=== PATIENT | female | born 1965 | race American Indian/Alaskan Native ===

== ENCOUNTER 2016-07-26 02:24 | Emergency (ER) | payer SELFPAY ==
[~2016-07-26] VITALS: Ht 162.6 cm; Wt 49.8 kg
[~2016-07-26 02:24] MED LIST: BETH25TA2 PO; LISI-515 PO; PROM12.54 PO
[2016-07-26 02:35] VITALS: BP 238/129; PULSE 102; RESP 18; TEMP 98.9; O2SAT 94
[2016-07-26] MEDS ORDERED: SODIUM CHLOR 0.9% 1000 ML INJ 1,000 ML IV SCH (02:36)
--- NOTE | 2016-07-26 02:43 | PD ---
HPI . Abdominal pain Chief Complaint: GI Complaint Time Seen by Provider: 02:36 Travel History International Travel<30 days: No Contact w/Intl Traveler<30days: No Traveled to known affect area: No History of Present Illness HPI Patient presents with abdominal pain and vomiting which started at 8 AM. She reports 10 episodes of emesis. The emesis is food substance. No diarrhea. She has no fever. She reports a history of gastroparesis. She states that she has been unable to keep her oral medication down. [id number]: Epigastric DURATION: Less than 1 day TIMING: Continuous CONTEXT: History of gastroparesis PFSH Past Medical History Blood Disorders: No Cancer: No Cardiovascular Problems: Yes (heart murmur -0- unknown) Diminished Hearing: No Endocrine: No Gastrointestinal Disorders: Yes (gastroparesis) Genitourinary: No Hypertension: Yes Immune Disorder: No Musculoskeletal: No Neurologic: No Psychiatric: No Reproductive: No Respiratory: No Immunizations Current: No Ulcer: Yes Tetanus Vaccination: Unknown Influenza Vaccination: No PNEUMOCCOCAL Vaccine (Year): 2 ?: Not Menopausal: No : 1 Para: 1 Past Surgical History Abdominal Surgery: Yes (HEMMORRHOIDS) Other Surgery: Yes (hemmorhoidectomy) Social History Alcohol Use: No Tobacco Use: Yes (1 PACK/DAY x 20 years) Substance Use: No Allergies-Medications (Allergen,Severity, Reaction): Coded Allergies: No Known Allergies (Verified , 07/26/16) Reported Meds & Prescriptions Reported Meds & Active Scripts Active Zofran Odt (Ondansetron Odt) 4 Mg Tab 4 Mg SL Q6HR PRN Lisinopril 20 Mg Tab 20 Mg PO BID Reported Promethazine (Promethazine HCl) 12.5 Mg Tab 12.5 Mg PO Q6H PRN Bethanechol 25 Mg Tab 25 Mg PO BID Review of Systems Except as stated in HPI: all other systems reviewed are Neg General / Constitutional: No: Fever, Chills Gastrointestinal: Positive: Nausea, Vomiting, Abdominal Pain, No: Diarrhea Physical Exam Narrative GENERAL: This is a thin woman who walks in a hunched over and who is writhing on the bed. SKIN: Warm and dry. HEAD: Atraumatic. Normocephalic. EYES: Pupils equal and round. ENT: No nasal bleeding or discharge. Mucous membranes pink and moist. NECK: Trachea midline. Neck is supple CARDIOVASCULAR: Regular rate and rhythm. She is having frequent PVCs. RESPIRATORY: No accessory muscle use. Lungs are clear. GASTROINTESTINAL: Abdomen soft. Epigastric tenderness. Nondistended. MUSCULOSKELETAL: No obvious deformities. No edema. NEUROLOGICAL: Awake and alert. No obvious cranial nerve deficits. Motor grossly within normal limits. Normal speech. PSYCHIATRIC: Appropriate mood and affect; insight and judgment normal. Data Data Last Documented VS Vital Signs Date Time Temp Pulse Resp B/P Pulse Ox O2 Delivery O2 Flow Rate FiO2 07/26/16 02:35 98.9 102 18 238/129 94 Orders Complete Blood Count With Diff (07/26/16 02:36) Comprehensive Metabolic Panel (07/26/16 02:36) Lipase (07/26/16 02:36) Iv Access Insert/Monitor (07/26/16 02:36) Morphine Inj (Morphine Inj) (07/26/16 02:45) Ondansetron Inj (Zofran Inj) (07/26/16 02:45) Sodium Chlor 0.9% 1000 Ml Inj (Ns 1000 M (07/26/16 02:36) Sodium Chloride 0.9% Flush (Ns Flush) (07/26/16 02:45) Lorazepam Inj (Ativan Inj) (07/26/16 03:15) Hydromorphone Pf Inj (Dilaudid Pf Inj) (07/26/16 03:15) Labs Laboratory Tests Test 07/26/16 07/26/16 02:46 03:20 White Blood Count 9.9 TH/MM3 Red Blood Count 4.84 MIL/MM3 Hemoglobin 14.7 GM/DL Hematocrit 45.0 % Mean Corpuscular Volume 93.0 FL Mean Corpuscular Hemoglobin 30.5 PG Mean Corpuscular Hemoglobin 32.8 % Concent Red Cell Distribution Width 13.3 % Platelet Count 405 TH/MM3 Mean Platelet Volume 8.4 FL Neutrophils (%) (Auto) 76.2 % Lymphocytes (%) (Auto) 18.5 % Monocytes (%) (Auto) 4.0 % Eosinophils (%) (Auto) 0.1 % Basophils (%) (Auto) 1.2 % Neutrophils # (Auto) 7.6 TH/MM3 Lymphocytes # (Auto) 1.8 TH/MM3 Monocytes # (Auto) 0.4 TH/MM3 Eosinophils # (Auto) 0.0 TH/MM3 Basophils # (Auto) 0.1 TH/MM3 CBC Comment DIFF FINAL Differential Comment Sodium Level 143 MEQ/L Potassium Level 3.4 MEQ/L Chloride Level 106 MEQ/L Carbon Dioxide Level 25.4 MEQ/L Anion Gap 12 MEQ/L Blood Urea Nitrogen 12 MG/DL Creatinine 0.93 MG/DL Estimat Glomerular Filtration 64 ML/MIN Rate Random Glucose 146 MG/DL Calcium Level 9.2 MG/DL Total Bilirubin 0.4 MG/DL Aspartate Amino Transf 13 U/L (AST/SGOT) Alanine Aminotransferase 23 U/L (ALT/SGPT) Alkaline Phosphatase 106 U/L Total Protein 7.1 GM/DL Albumin 3.9 GM/DL Lipase 111 U/L [facility] Medical Decision Making Medical Screen Exam Complete: Yes Emergency Medical Condition: Yes Medical Record Reviewed: Yes (the patient was last seen here in 2011 with similar symptoms. She was treated with IV fluids, morphine and Zofran.) Differential Diagnosis Differential diagnosis of abdominal pain includes but is not limited to gastritis, pancreatitis, hepatitis, gastroenteritis, gallbladder disease, constipation, urinary retention, UTI, peptic ulcer disease, diverticulitis or appendicitis Narrative Course Patient presents with epigastric pain associated with vomiting. She reports a history of gastroparesis. CBC & BMP Diagram 07/26/16 02:46 07/26/16 03:20 The patient continued to complain of pain and nausea following Zofran and morphine. She was subsequently given Ativan. The Ativan seems to have worked better than the Zofran and morphine. She has had no further emesis. Diagnosis Primary Impression: Epigastric pain Additional Impressions: Vomiting Qualified Code: R11.2 - Non-intractable vomiting with nausea, unspecified vomiting type Gastroparesis Patient Instructions: Narcotic given in the ED Med/Other Pt SpecificInfo: Prescription(s) given Scripts Ondansetron Odt (Zofran Odt)4 Mg Tab4 Mg SL Q6HR PRN (Nausea/Vomiting) #30 TAB Ref 0 Prov:Theresa Ackerman MD 07/26/16 Disposition: 01 DISCHARGE HOME Condition: Stable Theresa Ackerman MD Jul 26, 2016 02:43
[2016-07-26] MEDS ORDERED: MORPHINE SULFATE 4 MG/ML INJ IV PUSH ONE (02:45)
[2016-07-26] MEDS ORDERED: SODIUM CHLORIDE 0.9% FLUSH 5 ML FLUSH IVF PRN (02:45)
[2016-07-26] MEDS ORDERED: ONDANSETRON HCL 4 MG/2 ML VIAL IVP ONE (02:45)
[2016-07-26 03:07] LABS: AUTOMATED NEUTROPHIL # 7.6 TH/MM3 (1.8-7.7); BASOPHIL # 0.1 TH/MM3 (0-0.2); BASOPHIL % 1.2 % (0.0-2.0); EOSINOPHIL % 0.1 % (0.0-4.0); LYMPH % 18.5 % (9.0-44.0); LYMPHOCYTE # 1.8 TH/MM3 (1.0-4.8); MEAN CORPUSCULAR HEMOGLOBIN 30.5 PG (27.0-34.0); MEAN CORPUSCULAR HGB CONC 32.8 % (32.0-36.0); NEUT % 76.2 % (16.0-70.0); PLATELET COUNT 405 TH/MM3 (150-450); RED BLOOD COUNT 4.84 MIL/MM3 (4.00-5.30); RED CELL DISTRIBUTION WIDTH 13.3 % (11.6-17.2); WHITE BLOOD COUNT 9.9 TH/MM3 (4.0-11.0)
[2016-07-26 03:10] LABS: HEMO FLAGS DIFF FINAL
[2016-07-26] MEDS ORDERED: HYDROmorphone HCL PF 1 MG/ML VIAL IV PUSH ONE (03:15)
[2016-07-26] MEDS ORDERED: LORazepam 2 MG/ML VIAL IV PUSH ONE (03:15)
[2016-07-26 03:44] LABS: CHLORIDE 106 MEQ/L (98-107); POTASSIUM 3.4 MEQ/L (3.5-5.1); SODIUM (NA) 143 MEQ/L (136-145)
[2016-07-26 03:47] LABS: ANION GAP 12 MEQ/L (5-15); BICARBONATE 25.4 MEQ/L (21.0-32.0); BLOOD UREA NITROGEN 12 MG/DL (7-18)
[2016-07-26 03:50] LABS: ALT (GPT) 23 U/L (10-53); AST (GOT) 13 U/L (15-37); GLOMERULAR FILTRATION RATE 64 ML/MIN (>89)
[2016-07-26 03:52] LABS: TOTAL BILIRUBIN ADULT 0.4 MG/DL (0.2-1.0)
[2016-07-26 03:53] LABS: ALKALINE PHOSPHATASE 106 U/L (45-117)
[2016-07-26] MEDS ORDERED: ZOFR4TAB3 SL (03:57)
[2016-07-26 04:05] VITALS: BP 160/90
== END 2016-07-26 04:25 | disposition home or self-care (01) ==
LOC: PHED 02:24
DX: R10.13 Epigastric pain (principal); K31.84 Gastroparesis; R11.10 Vomiting, unspecified; I10 Essential (primary) hypertension; F17.210 Nicotine dependence, cigarettes, uncomplicated
CPT/HCPCS: 80053; 83690; 85025; 96361; 96374; 96375; 99284; J1170; J2060; J2270; J2405; J7030

== ENCOUNTER 2016-09-05 16:30 | Emergency (ER) | payer SELFPAY ==
[~2016-09-05] VITALS: Ht 162.6 cm; Wt 50.3 kg
[~2016-09-05 16:30] MED LIST changes: +ZOFR4TAB3 SL
[2016-09-05] MEDS ORDERED: SODIUM CHLOR 0.9% 1000 ML INJ 1,000 ML IV ONE (17:00)
[2016-09-05] MEDS ORDERED: HYDROmorphone HCL PF 1 MG/ML VIAL IV PUSH ONE ×2 (17:00→18:15)
[2016-09-05] MEDS ORDERED: ONDANSETRON HCL 4 MG/2 ML VIAL IV PUSH ONE (17:00)
[2016-09-05 17:02] VITALS: BP 238/116; PULSE 98; RESP 18; TEMP 98.2; O2SAT 94
--- NOTE | 2016-09-05 17:10 | PD ---
HPI Chief Complaint: GI Complaint Time Seen by Provider: 16:52 Travel History International Travel<30 days: No Contact w/Intl Traveler<30days: No Traveled to known affect area: No History of Present Illness HPI This 51-year-old female is complaining of epigastric pain and vomiting. She has been diagnosed with gastroparesis for several years. She has been sick for about 2 days. She has not been taking any medications. She has a history of hypertension and is on lisinopril PFSH Past Medical History Blood Disorders: No Cancer: No Cardiovascular Problems: Yes (heart murmur -0- unknown) Diminished Hearing: No Endocrine: No Gastrointestinal Disorders: Yes (gastroparesis) Genitourinary: No Hypertension: Yes Immune Disorder: No Implanted Vascular Access Dvce: No Musculoskeletal: No Neurologic: No Psychiatric: No Reproductive: No Respiratory: No Immunizations Current: No Ulcer: Yes PNEUMOCCOCAL Vaccine (Year): 2 ?: Not Menopausal: No : 1 Para: 1 Past Surgical History Abdominal Surgery: Yes (HEMMORRHOIDS) Other Surgery: Yes (hemmorhoidectomy) Social History Alcohol Use: No Tobacco Use: Yes (1 PACK/DAY x 20 years) Substance Use: No Allergies-Medications (Allergen,Severity, Reaction): Coded Allergies: No Known Allergies (Verified , 07/26/16) Reported Meds & Prescriptions Reported Meds & Active Scripts Active Lisinopril 20 Mg Tab 20 Mg PO BID Reported Bethanechol 25 Mg Tab 25 Mg PO BID Review of Systems General / Constitutional: No: Fever, Chills Eyes: No: Diploplia, Blurred Vision HENT: No: Headaches Cardiovascular: Positive: Palpitations, No: Chest Pain or Discomfort Respiratory: No: Cough Gastrointestinal: Positive: Nausea, Vomiting, Abdominal Pain Genitourinary: No: Frequency Musculoskeletal: No: Myalgias, Arthralgias Skin: No Rash Neurologic: No: Weakness Hematologic/Lymphatic: No: Easy Bruising Physical Exam Narrative GENERAL: Female vomiting on arrival SKIN: Focused skin assessment warm/dry. HEAD: Atraumatic. Normocephalic. EYES: Pupils equal and round. No scleral icterus. No injection or drainage. ENT: No nasal bleeding or discharge. Mucous membranes pink and moist. NECK: Trachea midline. No JVD. CARDIOVASCULAR: Regular rate and rhythm. No murmur appreciated. RESPIRATORY: No accessory muscle use. Clear to auscultation. Breath sounds equal bilaterally. GASTROINTESTINAL: Abdomen soft, there is epigastric tenderness nondistended. Hepatic and splenic margins not palpable. MUSCULOSKELETAL: No obvious deformities. No clubbing. No cyanosis. No edema. NEUROLOGICAL: Awake and alert. No obvious cranial nerve deficits. Motor grossly within normal limits. Normal speech. PSYCHIATRIC: Appropriate mood and affect; insight and judgment normal. Data Data Last Documented VS Vital Signs Date Time Temp Pulse Resp B/P Pulse Ox O2 Delivery O2 Flow Rate FiO2 09/05/16 17:45 16 09/05/16 17:30 88 196/103 97 Room Air 09/05/16 17:02 98.2 Orders Complete Blood Count With Diff (09/05/16 16:56) Comprehensive Metabolic Panel (09/05/16 16:56) Lipase (09/05/16 16:56) Sodium Chlor 0.9% 1000 Ml Inj (Ns 1000 M (09/05/16 17:00) Ondansetron Inj (Zofran Inj) (09/05/16 17:00) Hydromorphone Pf Inj (Dilaudid Pf Inj) (09/05/16 17:00) Enalaprilat Inj (Vasotec Inj) (09/05/16 17:45) Hydromorphone Pf Inj (Dilaudid Pf Inj) (09/05/16 18:15) Labs Laboratory Tests Test 09/05/16 17:05 White Blood Count 11.8 TH/MM3 Red Blood Count 5.02 MIL/MM3 Hemoglobin 15.6 GM/DL Hematocrit 47.0 % Mean Corpuscular Volume 93.6 FL Mean Corpuscular Hemoglobin 31.0 PG Mean Corpuscular Hemoglobin 33.2 % Concent Red Cell Distribution Width 13.6 % Platelet Count 392 TH/MM3 Mean Platelet Volume 8.0 FL Neutrophils (%) (Auto) 75.7 % Lymphocytes (%) (Auto) 16.0 % Monocytes (%) (Auto) 5.1 % Eosinophils (%) (Auto) 0.4 % Basophils (%) (Auto) 2.8 % Neutrophils # (Auto) 9.0 TH/MM3 Lymphocytes # (Auto) 1.9 TH/MM3 Monocytes # (Auto) 0.6 TH/MM3 Eosinophils # (Auto) 0.0 TH/MM3 Basophils # (Auto) 0.3 TH/MM3 CBC Comment DIFF FINAL Differential Comment Sodium Level 141 MEQ/L Potassium Level 3.6 MEQ/L Chloride Level 106 MEQ/L Carbon Dioxide Level 25.9 MEQ/L Anion Gap 9 MEQ/L Blood Urea Nitrogen 11 MG/DL Creatinine 0.87 MG/DL Estimat Glomerular Filtration 69 ML/MIN Rate Random Glucose 127 MG/DL Calcium Level 9.3 MG/DL Total Bilirubin 0.4 MG/DL Aspartate Amino Transf 18 U/L (AST/SGOT) Alanine Aminotransferase 21 U/L (ALT/SGPT) Alkaline Phosphatase 114 U/L Total Protein 7.4 GM/DL Albumin 4.1 GM/DL Lipase 111 U/L [facility] Medical Decision Making Medical Screen Exam Complete: Yes Emergency Medical Condition: Yes Medical Record Reviewed: Yes Differential Diagnosis Differential includes gastroenteritis, gastroparesis, Narrative Course Patient has multiple attacks like this in the past diagnosed with gastroparesis. Diagnosis Primary Impression: Gastroparesis Scripts Dicyclomine (Bentyl)20 Mg Tab20 Mg PO TID #20 TAB Ref 0 Prov:Christopher Ferrell MD 09/05/16 Ondansetron Odt (Zofran Odt)4 Mg Tab4 Mg SL Q6HR PRN (Nausea/Vomiting) #30 TAB Ref 0 Prov:Christopher Ferrell MD 09/05/16 Disposition: 01 DISCHARGE HOME Condition: Stable Christopher Ferrell MD Sep 05, 2016 17:10
[2016-09-05 17:15] LABS: BASOPHIL # 0.3 TH/MM3 (0-0.2); BASOPHIL % 2.8 % (0.0-2.0); EOSINOPHIL % 0.4 % (0.0-4.0); LYMPHOCYTE # 1.9 TH/MM3 (1.0-4.8); MEAN CELL VOLUME 93.6 FL (80.0-100.0); MEAN CORPUSCULAR HGB CONC 33.2 % (32.0-36.0); MONO % 5.1 % (0.0-8.0); NEUT % 75.7 % (16.0-70.0); PLATELET COUNT 392 TH/MM3 (150-450); RED BLOOD COUNT 5.02 MIL/MM3 (4.00-5.30); RED CELL DISTRIBUTION WIDTH 13.6 % (11.6-17.2); WHITE BLOOD COUNT 11.8 TH/MM3 (4.0-11.0)
[2016-09-05 17:23] LABS: HEMO FLAGS DIFF FINAL
[2016-09-05 17:30] VITALS: BP 196/103; PULSE 88; RESP 16; O2SAT 97
[2016-09-05] MEDS ORDERED: ENALAPRILAT 1.25 MG/ML VIAL IV PUSH ONE (17:45)
[2016-09-05 17:54] LABS: CHLORIDE 106 MEQ/L (98-107); POTASSIUM 3.6 MEQ/L (3.5-5.1); SODIUM (NA) 141 MEQ/L (136-145)
[2016-09-05 17:58] LABS: ANION GAP 9 MEQ/L (5-15); BICARBONATE 25.9 MEQ/L (21.0-32.0); BLOOD UREA NITROGEN 11 MG/DL (7-18)
[2016-09-05 18:01] LABS: ALT (GPT) 21 U/L (10-53); AST (GOT) 18 U/L (15-37); GLOMERULAR FILTRATION RATE 69 ML/MIN (>89)
[2016-09-05 18:02] LABS: TOTAL BILIRUBIN ADULT 0.4 MG/DL (0.2-1.0)
[2016-09-05 18:04] LABS: ALKALINE PHOSPHATASE 114 U/L (45-117)
[2016-09-05] MEDS ORDERED: ZOFR4TAB3 SL (18:18)
[2016-09-05] MEDS ORDERED: BENT20TA PO (18:18)
[2016-09-05 18:45] VITALS: BP 150/81; PULSE 80; RESP 14; O2SAT 100
[2016-09-05 19:13] VITALS: RESP 18
[2016-09-05 19:23] VITALS: BP 174/93
== END 2016-09-05 19:33 | disposition home or self-care (01) ==
LOC: PHED 16:30
DX: K31.84 Gastroparesis (principal); I10 Essential (primary) hypertension; F17.210 Nicotine dependence, cigarettes, uncomplicated
CPT/HCPCS: 80053; 83690; 85025; 96361; 96374; 96375; 96376; 99284; J1170; J2405; J7030

== ENCOUNTER 2016-11-29 22:42 | Emergency (ER) | payer SELFPAY ==
[~2016-11-29] VITALS: Ht 162.6 cm; Wt 50.0 kg
[~2016-11-29 22:42] MED LIST changes: +BENT20TA PO; -PROM12.54 PO
[2016-11-29 23:08] VITALS: BP 199/95; PULSE 90; RESP 18; TEMP 98.7; O2SAT 99
[2016-11-29 23:30] VITALS: BP_SYST 199; BP_DIAS 102; BP_DIAS 95; PULSE 100; PULSE 87; RESP 18; RESP 20; TEMP 98.7; O2SAT 97; O2SAT 99
[2016-11-30] VITALS (11 sets, daily range): BP systolic 160–215; BP diastolic 84–112; PULSE 76–99; RESP 16–18; O2SAT 95–99
[2016-11-30] MEDS ORDERED: HYDROmorphone HCL PF 1 MG/ML VIAL IV PUSH ONE ×2 (00:30→03:45)
[2016-11-30] MEDS ORDERED: SODIUM CHLOR 0.9% 1000 ML INJ 1,000 ML IV SCH (00:30)
[2016-11-30] MEDS ORDERED: METOCLOPRAMIDE HCL 10 MG/2 ML VIAL IV PUSH ONE (00:30)
[2016-11-30 00:56] LABS: AUTOMATED NEUTROPHIL # 7.9 TH/MM3 (1.8-7.7); BASOPHIL # 0.3 TH/MM3 (0-0.2); BASOPHIL % 3.2 % (0.0-2.0); EOSINOPHIL % 0.2 % (0.0-4.0); HEMATOCRIT 42.5 % (35.0-46.0); HEMO FLAGS DIFF FINAL; LYMPH % 17.3 % (9.0-44.0); LYMPHOCYTE # 1.8 TH/MM3 (1.0-4.8); MEAN CORPUSCULAR HEMOGLOBIN 31.3 PG (27.0-34.0); MONO % 3.4 % (0.0-8.0); NEUT % 75.9 % (16.0-70.0); PLATELET COUNT 355 TH/MM3 (150-450); RED BLOOD COUNT 4.62 MIL/MM3 (4.00-5.30); RED CELL DISTRIBUTION WIDTH 12.9 % (11.6-17.2); WHITE BLOOD COUNT 10.4 TH/MM3 (4.0-11.0)
--- NOTE | 2016-11-30 01:08 | RADRPT ---
EXAM DATE/TIME: 11/30/2016 00:35 [facility] COMPARISON: CHEST SINGLE AP, April 19, 2016, 22:54. INDICATIONS : Chest discomfort, abdominal pain, nausea for 2 days MEDICAL HISTORY : Gastroparesis. SURGICAL HISTORY : None. ENCOUNTER: Initial ACUITY: 2 days PAIN SCORE: 0/10 LOCATION: Bilateral chest FINDINGS: A single view of the chest demonstrates a nodular density projected over the right lower lung. This i s most likely a nipple shadow. Otherwise, the rest of the lungs are grossly clear. There are no effus ions or pulmonary edema.. The cardiomediastinal contours are unremarkable. Osseous structures are i ntact. CONCLUSION: 1. Probable nipple shadow projected over the right lower lung. Recommend followup 2 view chest x-ray with nipple markers. This can be performed on a nonemergent outpatient basis. 2. Otherwise no focal or acute intrathoracic disease. Jose Luis Metcalf MD on November 30, 2016 at 1:05 Board Certified Radiologist. This report was verified electronically.
[2016-11-30 01:11] LABS: CHLORIDE 105 MEQ/L (98-107); POTASSIUM 3.7 MEQ/L (3.5-5.1); SODIUM (NA) 140 MEQ/L (136-145)
[2016-11-30 01:15] LABS: ANION GAP 8 MEQ/L (5-15); BICARBONATE 27.2 MEQ/L (21.0-32.0); BLOOD UREA NITROGEN 10 MG/DL (7-18)
[2016-11-30 01:18] LABS: ALT (GPT) 23 U/L (10-53); AST (GOT) 15 U/L (15-37); GLOMERULAR FILTRATION RATE 75 ML/MIN (>89)
[2016-11-30 01:19] LABS: TOTAL BILIRUBIN ADULT 0.5 MG/DL (0.2-1.0)
[2016-11-30 01:21] LABS: ALKALINE PHOSPHATASE 119 U/L (45-117)
[2016-11-30 01:48] LABS: BLOOD, URINE SMALL (NEG); GLUCOSE,URINE NEG (NEG); KETONE, URINE TRACE mg/dL (NEG); NITRITE,URINE NEG (NEG)
[2016-11-30 01:50] LABS: URINE COLOR YELLOW (YELLW/STRAW)
[2016-11-30 01:54] LABS: COMMENT (UR) CULT NOT INDICATED; CULTURE IF INDICATED CULT NOT INDICATED
[2016-11-30] MEDS ORDERED: ENALAPRILAT 1.25 MG/ML VIAL IV PUSH ONE (03:00)
--- NOTE | 2016-11-30 03:43 | PD ---
HPI Chief Complaint: Abdominal Pain Time Seen by Provider: 00:21 Travel History International Travel<30 days: No Contact w/Intl Traveler<30days: No Traveled to known affect area: No History of Present Illness HPI 51-year-old female with long-standing history of symptomatic gastroparesis presents with multiple episodes of vomiting and abdominal pain. Patient was reportedly seen by her steeler Dr. Finney earlier today and was encouraged to start new medication however unable to tolerate any oral intake and unable to keep down her antihypertensive medication lisinopril. Patient notes that her blood pressure is quite elevated. Patient does not report any hematemesis coffee-ground emesis melena hematochezia. Patient's had no fever or chills. Symptoms are typical of her symptomatic gastroparesis. PFSH Past Medical History Narrative Medical Hypertension gastroparesis hemorrhoidectomy tobacco use nursing notes reviewed Blood Disorders: No Cancer: No Cardiovascular Problems: Yes (heart murmur -0- unknown) Diminished Hearing: No Endocrine: No Gastrointestinal Disorders: Yes (gastroparesis) Genitourinary: No Hypertension: Yes Immune Disorder: No Implanted Vascular Access Dvce: No Musculoskeletal: No Neurologic: No Psychiatric: No Reproductive: No Respiratory: No Immunizations Current: No Ulcer: Yes Influenza Vaccination: No PNEUMOCCOCAL Vaccine (Year): 2 ?: Not Menopausal: No : 1 Para: 1 Past Surgical History Abdominal Surgery: Yes (HEMMORRHOIDS) Other Surgery: Yes (hemmorhoidectomy) Social History Alcohol Use: No Tobacco Use: Yes (1 PACK/DAY x 20 years) Substance Use: No Allergies-Medications (Allergen,Severity, Reaction): Coded Allergies: No Known Allergies (Verified , 11/29/16) Reported Meds & Prescriptions Reported Meds & Active Scripts Active Clonidine (Clonidine HCl) 0.1 Mg Tab 0.1 Mg PO Q12HR PRN Reglan (Metoclopramide HCl) 10 Mg Tab 10 Mg PO Q6HR Bentyl (Dicyclomine HCl) 20 Mg Tab 20 Mg PO TID Zofran Odt (Ondansetron Odt) 4 Mg Tab 4 Mg SL Q6HR PRN Lisinopril 20 Mg Tab 20 Mg PO BID Reported Bethanechol 25 Mg Tab 25 Mg PO BID Review of Systems Except as stated in HPI: all other systems reviewed are Neg General / Constitutional: No: Fever, Chills HENT: No: Congestion Cardiovascular: No: Chest Pain or Discomfort Respiratory: No: Shortness of Breath Gastrointestinal: Positive: Nausea, Vomiting, Abdominal Pain Genitourinary: No: Dysuria, Flank Pain Musculoskeletal: No: Myalgias, Arthralgias Skin: No Rash Neurologic: No: Weakness Psychiatric: Positive: Anxiety Endocrine: No: Heat Intolerance Hematologic/Lymphatic: No: Lymph Node Enlargement Physical Exam Narrative GENERAL: Well-developed thin female in no acute distress no respiratory distress SKIN: Warm and dry. HEAD: Normocephalic. EYES: No scleral icterus. No injection or drainage. NECK: Supple, trachea midline. No JVD or lymphadenopathy. CARDIOVASCULAR: Regular rate and rhythm without murmurs, gallops, or rubs. RESPIRATORY: Breath sounds equal bilaterally. No accessory muscle use. GASTROINTESTINAL: Abdomen soft, mildly diffusely tender to palpation without guarding or rebound, nondistended. MUSCULOSKELETAL: No cyanosis, or edema. BACK: Nontender without obvious deformity. No CVA tenderness. Data Data Last Documented VS Vital Signs Date Time Temp Pulse Resp B/P Pulse Ox O2 Delivery O2 Flow Rate FiO2 11/30/16 04:28 16 11/30/16 04:20 78 162/88 96 Room Air 11/29/16 23:30 98.7 Orders Complete Blood Count With Diff (11/30/16 00:21) Comprehensive Metabolic Panel (11/30/16 00:21) Lipase (11/30/16 00:21) Lactic Acid (11/30/16 00:21) Urinalysis - C+S If Indicated (11/30/16 00:21) Iv Access Insert/Monitor (11/30/16 00:21) Ecg Monitoring (11/30/16 00:21) Oximetry (11/30/16 00:21) Electrocardiogram (11/30/16 00:21) Metoclopramide Inj (Reglan Inj) (11/30/16 00:30) Hydromorphone Pf Inj (Dilaudid Pf Inj) (11/30/16 00:30) Sodium Chlor 0.9% 1000 Ml Inj (Ns 1000 M (11/30/16 00:30) Magnesium (Mg) (11/30/16 00:21) Chest, Single Ap (11/30/16 ) Enalaprilat Inj (Vasotec Inj) (11/30/16 03:00) Hydromorphone Pf Inj (Dilaudid Pf Inj) (11/30/16 03:45) Ondansetron Inj (Zofran Inj) (11/30/16 04:00) Labetalol Inj (Trandate Inj) (11/30/16 04:00) Labs Laboratory Tests Test 11/30/16 11/30/16 00:42 01:35 White Blood Count 10.4 TH/MM3 Red Blood Count 4.62 MIL/MM3 Hemoglobin 14.4 GM/DL Hematocrit 42.5 % Mean Corpuscular Volume 92.0 FL Mean Corpuscular Hemoglobin 31.3 PG Mean Corpuscular Hemoglobin 34.0 % Concent Red Cell Distribution Width 12.9 % Platelet Count 355 TH/MM3 Mean Platelet Volume 8.1 FL Neutrophils (%) (Auto) 75.9 % Lymphocytes (%) (Auto) 17.3 % Monocytes (%) (Auto) 3.4 % Eosinophils (%) (Auto) 0.2 % Basophils (%) (Auto) 3.2 % Neutrophils # (Auto) 7.9 TH/MM3 Lymphocytes # (Auto) 1.8 TH/MM3 Monocytes # (Auto) 0.4 TH/MM3 Eosinophils # (Auto) 0.0 TH/MM3 Basophils # (Auto) 0.3 TH/MM3 CBC Comment DIFF FINAL Differential Comment Sodium Level 140 MEQ/L Potassium Level 3.7 MEQ/L Chloride Level 105 MEQ/L Carbon Dioxide Level 27.2 MEQ/L Anion Gap 8 MEQ/L Blood Urea Nitrogen 10 MG/DL Creatinine 0.81 MG/DL Estimat Glomerular Filtration 75 ML/MIN Rate Random Glucose 124 MG/DL Lactic Acid Level 1.1 mmol/L Calcium Level 9.3 MG/DL Magnesium Level 2.0 MG/DL Total Bilirubin 0.5 MG/DL Aspartate Amino Transf 15 U/L (AST/SGOT) Alanine Aminotransferase 23 U/L (ALT/SGPT) Alkaline Phosphatase 119 U/L Total Protein 7.4 GM/DL Albumin 4.0 GM/DL Lipase 213 U/L Urine Color YELLOW Urine Turbidity CLEAR Urine pH 6.0 Urine Specific [place] 1.011 Urine Protein NEG mg/dL Urine Glucose (UA) NEG mg/dL Urine Ketones TRACE mg/dL Urine Occult Blood SMALL Urine Nitrite NEG Urine Bilirubin NEG Urine Leukocyte Esterase TRACE Urine RBC 4-9 /hpf Urine WBC 3-5 /hpf Urine Squamous Epithelial 6-8 /hpf Cells Urine Bacteria NONE /hpf Microscopic Urinalysis Comment CULT NOT INDICATED MDM Medical Decision Making Medical Screen Exam Complete: Yes Emergency Medical Condition: Yes Medical Record Reviewed: Yes Interpretation(s) Last Impressions Chest X-Ray 11/30/16 0000 Signed Impressions: Service Date/Time: November 00:35 - CONCLUSION: 1. Probable nipple shadow projected over the right lower lung. Recommend followup 2 view chest x-ray with nipple markers. This can be performed on a nonemergent outpatient basis. 2. Otherwise no focal or acute intrathoracic disease. Jose Luis Metcalf MD CBC & BMP Diagram 11/30/16 00:42 Differential Diagnosis Gastroparesis, bowel obstruction, ischemic colitis, enteritis, gastritis, pancreatitis, diverticulitis Narrative Course IV access obtained specimens collected and sent for resulting patient administered normal saline bolus along with Dilaudid 1 mg IV and 10 mg of Reglan IV Patient symptomatically improved but remains hypertensive therefore received Vasotec 1.25 mg IV Laboratory values grossly normal range at 3:43 AM patient complains of recurrent pain therefore additional dose of Dilaudid 1 mg IV administered Patient with ongoing hypertension therefore labetalol 10 mg IV administered with good blood pressure response. @4:45 AM patient sitting upright no nausea no vomiting no abdominal pain blood pressure 162/88. Patient denies any headache visual disturbance chest pain shortness of breath abdominal pain flank pain nausea and has no vomiting. At this time patient has prescription for Phenergan and less than a prolonged will add medication Reglan and as needed clonidine. Patient encouraged to follow-up with her primary care provider and steeler. Diagnosis Primary Impression: Hypertension Qualified Code: I10 - Essential hypertension Additional Impressions: Gastroparesis Vomiting Qualified Code: R11.2 - Non-intractable vomiting with nausea, unspecified vomiting type Referrals: Skip Load Driver call for appointment Primary Care Physician 1 day Patient Instructions: General Instructions, Narcotic given in the ED Additional Instructions: Follow clear liquid diet for next 12-24 hours advance as tolerated to bland/ Steve diet Continue chronic blood pressure medication as prescribed Continue as needed Phenergan for nausea and/or vomiting or may use Reglan/ metoclopramide as prescribed as often as every 6 hours as needed for nausea and/ or vomiting Follow-up with your primary care provider and steeler Return to the emergency department for any concerns or change in condition Med/Other Pt SpecificInfo: Prescription(s) given Scripts Clonidine 0.1 Mg Tab0.1 Mg PO Q12HR PRN (SBP>180, DBP>95) #6 TAB Ref 0 Prov:Cyndi Romo MD 11/30/16 Metoclopramide (Reglan)10 Mg Tab10 Mg PO Q6HR #12 TAB Ref 0 Prov:Cyndi Romo MD 11/30/16 Disposition: 01 DISCHARGE HOME Condition: Stable Cyndi Romo MD Nov 30, 2016 03:43
[2016-11-30] MEDS ORDERED: ONDANSETRON HCL 4 MG/2 ML VIAL IV PUSH ONE (04:00)
[2016-11-30] MEDS ORDERED: LABETALOL HCL 100 MG/20 ML VIAL IV PUSH ONE (04:00)
[2016-11-30] MEDS ORDERED: CLON0.1T PO (04:40)
[2016-11-30] MEDS ORDERED: REGL10TA5 PO (04:40)
--- NOTE | 2016-11-30 19:11 | EKG ---
Date Performed: 11/30/2016 Time Performed: 00:30:02 PTAGE: 51 years EKG: Sinus rhythm WITH MARKED SINUS ARRHYTHMIA WITH SHORT PA INTERVAL POSSIBLE RIGHT ATRIAL ENLARGEMENT POSSIBLE LEFT ATRIAL ENLARGEMENT BORDERLINE ECG PREVIOUS TRACING : 04/20/2016 04.51 Compared to prior tracing no significant change DOCTOR: Ainsely Morris Interpretating Date/Time 11/30/2016 19:08:30
== END 2016-11-30 05:05 | disposition home or self-care (01) ==
LOC: PHED 22:42
DX: I10 Essential (primary) hypertension (principal); K31.84 Gastroparesis; F17.210 Nicotine dependence, cigarettes, uncomplicated; I49.8 Other specified cardiac arrhythmias
CPT/HCPCS: 71010; 80053; 81001; 83605; 83690; 83735; 85025; 93005; 96361; 96374; 96375; 96376; 99285; J1170; J2405; J2765; J7030

== ENCOUNTER 2017-02-22 16:34 | Emergency (ER) | payer SELFPAY ==
[~2017-02-22] VITALS: Ht 157.5 cm; Wt 48.0 kg
[~2017-02-22 16:34] MED LIST changes: +CLON0.1T PO; +REGL10TA5 PO
[2017-02-22 16:36] VITALS: BP 226/113; PULSE 108; RESP 22; TEMP 97.9; O2SAT 96
[2017-02-22 16:46] VITALS: BP 141/90; PULSE 92; PULSE 94; RESP 26; TEMP 98.8; O2SAT 100
[2017-02-22] MEDS ORDERED: LISI40TA PO (16:46)
[2017-02-22] MEDS ORDERED: SODIUM CHLOR 0.9% 1000 ML INJ 1,000 ML IV SCH (16:54)
[2017-02-22] MEDS ORDERED: SODIUM CHLORIDE 0.9% FLUSH 10 ML FLUSH IV FLUSH PRN (17:00)
[2017-02-22] MEDS ORDERED: MORPHINE SULFATE 4 MG/ML INJ IV PUSH ONE (17:00)
[2017-02-22] MEDS ORDERED: ONDANSETRON HCL 4 MG/2 ML VIAL IVP ONE (17:00)
[2017-02-22 17:02] VITALS: O2SAT 99
--- NOTE | 2017-02-22 17:09 | PD ---
HPI Chief Complaint: Chest Pain Time Seen by Provider: 16:44 Travel History International Travel<30 days: No Contact w/Intl Traveler<30days: No Traveled to known affect area: No History of Present Illness HPI Patient comes in complaining of epigastric pain that she awoke with this morning. Patient reports pain is constant and similar to previous gastroparesis flareups. Patient states she is on medication that her GI specialist got her from [place] secondary to the severity of her symptoms. Patient states she tried taking her nausea medications morning but was unable to keep it down. Patient is unable keep her blood pressure medicine down as well. Patient reports last time she had this was the last time she was seen here in the emergency department. Patient states she is normally controlled with her home medication, but has to come to the ER for IV medication. Patient denies any radiation of the pain. Denies any blood in the vomit reports nonbilious. reports patient's has vomited approximate 6 times today Denies any diarrhea or melena. Denies any chest pain, shortness of breath, fevers, headaches, numbness or tingling anywhere. Reports her GI specialist is Dr. Finney. [facility] Past Medical History Blood Disorders: No Cancer: No Cardiovascular Problems: Yes (heart murmur -0- unknown) Diminished Hearing: No Endocrine: No Gastrointestinal Disorders: Yes (gastroparesis) Genitourinary: No Hypertension: Yes Immune Disorder: No Implanted Vascular Access Dvce: No Musculoskeletal: No Neurologic: No Psychiatric: No Reproductive: No Respiratory: No Immunizations Current: No Ulcer: Yes PNEUMOCCOCAL Vaccine (Year): 2 ?: Not Menopausal: No : 1 Para: 1 Past Surgical History Abdominal Surgery: Yes (HEMMORRHOIDS) Other Surgery: Yes (hemmorhoidectomy) Social History Alcohol Use: No Tobacco Use: Yes (1 PACK/DAY x 20 years) Substance Use: No Allergies-Medications (Allergen,Severity, Reaction): Coded Allergies: No Known Allergies (Verified , 02/22/17) Reported Meds & Prescriptions Reported Meds & Active Scripts Active Phenergan Supp (Promethazine HCl) 12.5 Mg Supp 12.5 Mg RECTAL Q6H PRN Reported Lisinopril 40 Mg Tab 40 Mg PO DAILY Review of Systems Except as stated in HPI: all other systems reviewed are Neg Physical Exam Narrative GENERAL: Well-developed, well nourished, in no acute distress, and non-ill appearing. SKIN: Focused skin assessment warm and dry. HEAD: Atraumatic. Normocephalic. EYES: Pupils equal and round. EOMI. No scleral icterus. No injection or drainage. ENT: No nasal bleeding or discharge. Mucous membranes pink and moist. NECK: Trachea midline. No JVD. Supple. No nuclear rigidity. CARDIOVASCULAR: Regular rate and rhythm. No murmur appreciated. RESPIRATORY: No accessory muscle use. No respiratory distress. Clear to auscultation. Breath sounds equal bilaterally. GASTROINTESTINAL: Abdomen soft, nondistended, and no guarding. Hepatic and splenic margins not palpable. Normal bowel sounds 4. No pulsatile mass. Patient reports tenderness to palpation in epigastric area. MUSCULOSKELETAL: No obvious deformities. No clubbing. No cyanosis. No edema. Full range of motion. NEUROLOGICAL: Awake and alert. No obvious cranial nerve deficits. Motor grossly within normal limits. Normal speech. PSYCHIATRIC: Appropriate mood and affect; insight and judgment normal. Data Data Last Documented VS Vital Signs Date Time Temp Pulse Resp B/P (MAP) Pulse Ox O2 Delivery O2 Flow Rate FiO2 02/22/17 20:09 02/22/17 17:02 99 Room Air 02/22/17 16:46 94 26 02/22/17 16:46 98.8 Orders Orders Electrocardiogram (02/22/17 ) Complete Blood Count With Diff (02/22/17 16:54) Comprehensive Metabolic Panel (02/22/17 16:54) Lipase (02/22/17 16:54) Lactic Acid (02/22/17 16:54) Prothrombin Time / Inr (Pt) (02/22/17 16:54) Act Partial Throm Time (Ptt) (02/22/17 16:54) Urinalysis - C+S If Indicated (02/22/17 16:54) Iv Access Insert/Monitor (02/22/17 16:54) Ecg Monitoring (02/22/17 16:54) Oximetry (02/22/17 16:54) Ondansetron Inj (Zofran Inj) (02/22/17 17:00) Sodium Chlor 0.9% 1000 Ml Inj (Ns 1000 M (02/22/17 16:54) Sodium Chloride 0.9% Flush (Ns Flush) (02/22/17 17:00) Chest, Single Ap (02/22/17 16:54) Magnesium (Mg) (02/22/17 16:54) Morphine Inj (Morphine Inj) (02/22/17 17:00) Hydromorphone Pf Inj (Dilaudid Pf Inj) (02/22/17 18:00) Metoclopramide Inj (Reglan Inj) (02/22/17 19:45) Hydromorphone Pf Inj (Dilaudid Pf Inj) (02/22/17 19:45) Hydromorphone Pf Inj (Dilaudid Pf Inj) (02/22/17 19:45) Ed Discharge Order (02/22/17 19:59) Labs Laboratory Tests Test 02/22/17 17:00 02/22/17 18:45 White Blood Count 11.7 TH/MM3 Red Blood Count 4.69 MIL/MM3 Hemoglobin 15.3 GM/DL Hematocrit 44.8 % Mean Corpuscular Volume 95.6 FL Mean Corpuscular Hemoglobin 32.6 PG Mean Corpuscular Hemoglobin Concent 34.1 % Red Cell Distribution Width 13.7 % Platelet Count 340 TH/MM3 Mean Platelet Volume 8.6 FL Neutrophils (%) (Auto) 81.7 % Lymphocytes (%) (Auto) 13.8 % Monocytes (%) (Auto) 4.0 % Eosinophils (%) (Auto) 0.1 % Basophils (%) (Auto) 0.4 % Neutrophils # (Auto) 9.6 TH/MM3 Lymphocytes # (Auto) 1.6 TH/MM3 Monocytes # (Auto) 0.5 TH/MM3 Eosinophils # (Auto) 0.0 TH/MM3 Basophils # (Auto) 0.0 TH/MM3 CBC Comment DIFF FINAL Differential Comment Prothrombin Time 10.5 SEC Prothromb Time International Ratio 1.0 RATIO Activated Partial Thromboplast Time 25.4 SEC Blood Urea Nitrogen 9 MG/DL Creatinine 1.00 MG/DL Random Glucose 149 MG/DL Total Protein 8.1 GM/DL Albumin 4.6 GM/DL Calcium Level 9.8 MG/DL Magnesium Level 2.2 MG/DL Alkaline Phosphatase 131 U/L Aspartate Amino Transf (AST/SGOT) 17 U/L Alanine Aminotransferase (ALT/SGPT) 25 U/L Total Bilirubin 0.4 MG/DL Sodium Level 139 MEQ/L Potassium Level 3.8 MEQ/L Chloride Level 105 MEQ/L Carbon Dioxide Level 24.6 MEQ/L Anion Gap 9 MEQ/L Estimat Glomerular Filtration Rate 58 ML/MIN Lactic Acid Level 1.9 mmol/L Lipase 99 U/L Urine Color LIGHT-YELLOW Urine Turbidity CLEAR Urine pH 7.0 Urine Specific [place] 1.008 Urine Protein NEG mg/dL Urine Glucose (UA) NEG mg/dL Urine Ketones 10 mg/dL Urine Occult Blood NEG Urine Nitrite NEG Urine Bilirubin NEG Urine Urobilinogen LESS THAN 2.0 MG/DL Urine Leukocyte Esterase NEG Urine RBC 4 /hpf Urine WBC 1 /hpf Urine Squamous Epithelial Cells <1 /hpf Urine Amorphous Sediment RARE Microscopic Urinalysis Comment CULT NOT INDICATED MDM Medical Decision Making Medical Screen Exam Complete: Yes Emergency Medical Condition: Yes Interpretation(s) EKG reviewed by Dr. Amaya shows normal sinus rhythm with ventricular rate 92. No STEMI. Differential Diagnosis Electrolyte abnormality, gastroparesis, pancreatitis, intractable nausea and vomiting, uncontrolled hypertension, other Narrative Course Patient was seen and examined. Initial laboratory radiological studies were ordered. IV was established and patient was placed on continuous cardiac monitoring. Patient was given IV morphine for pain, Zofran for nausea, and IV fluids. 1754 patient reassessed reports nausea has subsided but continues to have abdominal pain. Patient with no relief with morphine. Labs look reassuring. Awaiting UA. 1933 patient is asking for water to drink. Reports nausea is improved. But continues complaining of the abdominal discomfort. Lab work is reassuring. All pertinent laboratory/Radiology result(s) discussed with patient/family. Symptoms are consistent with previous gastroparesis epigastric pain she's been seen here for the emergency department. Will give patient one additional dose of pain medication and 1 dose of Reglan and discharged with prescription for Phenergan suppositories in case she is unable to take her oral antiemetics. Patient is agreeable to this. All questions were answered. 1954 patient ambulated out of her room wanting her pain medication. Patient wanting to just leave if she doesn't get her pain medicines soon. 2019 patient reportedly upset is refusing to take his stating is still in pain. Discussed with Dr. Sherman, who saw and evaluated the patient. Dr. Sherman was going to obtain a abdominal CT, however, patient is not wanting this and is just wanting to leave now. 2039 patient comes upto me, thanks me for my help, and shakes my hand. Reinforced sheer importance of close follow up with patient's primary physician or primary care clinic and GI specialist. Instructed patient to return to ED immediately, if symptoms return/worsen. Patient showed understanding of above instructions. Further instructions and recommendations were detailed in discharge paperwork. are both smiling and waving goodbye on way out of the hospital. Patient ambulated without difficulty out of ED at discharge. Diagnosis Primary Impression: Epigastric pain Patient Instructions: Epigastric Pain (ED), General Instructions Additional Instructions: Follow-up with your primary care physician and GI doctor in one to 3 days for reevaluation. Take all medication as prescribed. Return to the emergency department if symptoms get worse. Med/Other Pt SpecificInfo: Prescription(s) given Scripts Promethazine Supp (Phenergan Supp) 12.5 Mg Supp 12.5 MG RECTAL Q6H Y for NAUSEA OR VOMITING, #9 SUPP 0 Refills Prov: Stewart Amaya MD 02/22/17 Disposition: 01 DISCHARGE HOME Condition: Stable David Davalos Feb 22, 2017 17:09
[2017-02-22 17:27] LABS: HEMATOCRIT 44.8 % (35.0-46.0); MEAN CELL VOLUME 95.6 FL (80.0-100.0); MEAN CORPUSCULAR HEMOGLOBIN 32.6 PG (27.0-34.0); MEAN CORPUSCULAR HGB CONC 34.1 % (32.0-36.0); RED BLOOD COUNT 4.69 MIL/MM3 (4.00-5.30); RED CELL DISTRIBUTION WIDTH 13.7 % (11.6-17.2); WHITE BLOOD COUNT 11.7 TH/MM3 (4.0-11.0)
[2017-02-22 17:28] LABS: AUTOMATED NEUTROPHIL # 9.6 TH/MM3 (1.8-7.7); BASOPHIL % 0.4 % (0.0-2.0); EOSINOPHIL % 0.1 % (0.0-4.0); HEMO FLAGS DIFF FINAL; LYMPH % 13.8 % (9.0-44.0); LYMPHOCYTE # 1.6 TH/MM3 (1.0-4.8); NEUT % 81.7 % (16.0-70.0); PLATELET COUNT 340 TH/MM3 (150-450)
--- NOTE | 2017-02-22 17:37 | RADRPT ---
EXAM DATE/TIME: 02/22/2017 16:55 [facility] COMPARISON: CHEST SINGLE AP, November 30, 2016, 0:35. INDICATIONS : Vomiting MEDICAL HISTORY : Gastroparesis. SURGICAL HISTORY : None. ENCOUNTER: Initial ACUITY: 2 days PAIN SCORE: 0/10 LOCATION: chest FINDINGS: A single view of the chest demonstrates the lungs to be symmetrically hyper aerated without evidence of mass, infiltrate or effusion. The cardiomediastinal contours are unremarkable. Osseous structure s are intact. CONCLUSION: 1. Hyperinflated lungs characteristic of COPD. 2. No evidence of acute cardiopulmonary process or interval change. Sarwat Henry MD on February 22, 2017 at 17:34 Board Certified Radiologist. This report was verified electronically.
[2017-02-22 17:46] LABS: ALT (GPT) 25 U/L (10-53); ANION GAP 9 MEQ/L (5-15); AST (GOT) 17 U/L (15-37); BICARBONATE 24.6 MEQ/L (21.0-32.0); BLOOD UREA NITROGEN 9 MG/DL (7-18); CHLORIDE 105 MEQ/L (98-107); GLOMERULAR FILTRATION RATE 58 ML/MIN (>89); MAGNESIUM 2.2 MG/DL (1.5-2.5); POTASSIUM 3.8 MEQ/L (3.5-5.1); SODIUM (NA) 139 MEQ/L (136-145)
[2017-02-22 17:48] LABS: ALKALINE PHOSPHATASE 131 U/L (45-117); TOTAL BILIRUBIN ADULT 0.4 MG/DL (0.2-1.0)
[2017-02-22] MEDS ORDERED: HYDROmorphone HCL PF 1 MG/ML VIAL IV PUSH ONE ×3 (18:00→19:45)
[2017-02-22 18:07] LABS: APTT (PATIENT) 25.4 SEC (24.3-30.1); PROTHROMBIN TIME - PATIENT 10.5 SEC (9.8-11.6)
--- NOTE | 2017-02-22 18:43 | EKG ---
Date Performed: 02/22/2017 Time Performed: 16:47:34 PTAGE: 52 years EKG: Sinus rhythm POSSIBLE RIGHT ATRIAL ENLARGEMENT POSSIBLE LEFT ATRIAL ENLARGEMENT BORDERLINE ECG PREVIOUS TRACING : 11/30/2016 00.30 No significant change from previous tracing noted. DOCTOR: Jose Sultana Interpretating Date/Time 02/22/2017 18:41:14
[2017-02-22 19:28] LABS: BLOOD, URINE NEG (NEG); COMMENT (UR) CULT NOT INDICATED; CULTURE IF INDICATED CULT NOT INDICATED; GLUCOSE,URINE NEG (NEG); KETONE, URINE 10 mg/dL (NEG); NITRITE,URINE NEG (NEG); SQUAMOUS EPITHELIAL CELL URINE <1 /hpf (0-5); URINE COLOR LIGHT-YELLOW (YELLW/STRAW)
[2017-02-22] MEDS ORDERED: PROM2SUP RECTAL (19:41)
[2017-02-22] MEDS ORDERED: METOCLOPRAMIDE HCL 10 MG/2 ML VIAL IV PUSH ONE (19:45)
== END 2017-02-22 20:52 | disposition home or self-care (01) ==
LOC: NEPE 16:34
DX: R10.13 Epigastric pain (principal); I10 Essential (primary) hypertension; F17.200 Nicotine dependence, unspecified, uncomplicated
CPT/HCPCS: 71010; 80053; 81001; 83605; 83690; 83735; 85025; 85610; 85730; 93005; 96361; 96374; 96375; 96376; 99285; J1170; J2270; J2405; J2765; J7030

== ENCOUNTER 2017-07-18 14:08 | Emergency (ER) | payer SELFPAY ==
[~2017-07-18] VITALS: Ht 162.6 cm; Wt 54.8 kg
[~2017-07-18 14:08] MED LIST changes: -BENT20TA PO; -BETH25TA2 PO; -CLON0.1T PO; -LISI-515 PO; +LISI40TA PO; +PROM2SUP RECTAL; -REGL10TA5 PO; -ZOFR4TAB3 SL
[2017-07-18 14:18] VITALS: BP 193/93; PULSE 82; RESP 16; TEMP 98.5; O2SAT 97
[2017-07-18] MEDS ORDERED: domperidone (14:32)
[2017-07-18] MEDS ORDERED: BACT800T5 PO (14:59)
--- NOTE | 2017-07-18 15:00 | PD ---
HPI Chief Complaint: Skin Problem Time Seen by Provider: 14:38 Travel History International Travel<30 days: No Contact w/Intl Traveler<30days: No Traveled to known affect area: No History of Present Illness HPI 2-year-old female here with a possible abscess to her right thigh. She reports the area has been present for several months and recently became more painful and swollen over the last several days. No fever chills. Symptom severity is moderate. Area is painful to touch. No alleviating factors. PFSH Past Medical History Blood Disorders: No Cancer: No Cardiovascular Problems: Yes (heart murmur -0- unknown) Diminished Hearing: No Endocrine: No Gastrointestinal Disorders: Yes (gastroparesis) Genitourinary: No Hypertension: Yes Immune Disorder: No Implanted Vascular Access Dvce: No Musculoskeletal: No Neurologic: No Psychiatric: No Reproductive: No Respiratory: No Immunizations Current: No Ulcer: Yes Tetanus Vaccination: Unknown Influenza Vaccination: No PNEUMOCCOCAL Vaccine (Year): 2 ?: Not Menopausal: No : 1 Para: 1 Past Surgical History Abdominal Surgery: Yes (HEMMORRHOIDS) Other Surgery: Yes (hemmorhoidectomy) Social History Alcohol Use: No Tobacco Use: Yes (1 PACK/DAY x 20 years) Substance Use: No Allergies-Medications (Allergen,Severity, Reaction): Coded Allergies: No Known Allergies (Verified Adverse Reaction, Unknown, 07/18/17) Reported Meds & Prescriptions Reported Meds & Active Scripts Active Reported [domperidone] Lisinopril 40 Mg Tab 40 Mg PO DAILY Review of Systems Except as stated in HPI: all other systems reviewed are Neg General / Constitutional: No: Fever Physical Exam Narrative GENERAL: Alert and well-appearing 22-year-old female SKIN: Warm and dry. 1.5CM raised fluctuant area to the right lateral thigh. No surrounding erythema. No drainage. HEAD: Normocephalic. EYES: No injection or drainage. NECK: Supple, trachea midline. No JVD or lymphadenopathy. MUSCULOSKELETAL: No cyanosis, or edema. 2+ distal pulses. Normal sensation. Data Data Last Documented VS Vital Signs Date Time Temp Pulse Resp B/P (MAP) Pulse Ox O2 Delivery O2 Flow Rate FiO2 07/18/17 14:18 98.5 82 16 193/93 (126) 97 MDM Medical Decision Making Medical Screen Exam Complete: Yes Emergency Medical Condition: Yes Differential Diagnosis Abscess, inflamed sebaceous cyst, cellulitis Narrative Course 52-year-old female here with an abscess to the right lateral thigh. Area was incised and drained. Patient tolerated procedure well. She'll be prescribed Bactrim. Instructed to follow-up with her primary doctor. Procedures Procedure Narrative INCISION AND DRAINAGE OF ABSCESS: The area was prepped and was sterilely draped. A subcutaneous wheal of 1 % Xylocaine used to anesthetize the area properly. A number [11] scalpel was used to make a 0.5 -cm incision across the area of the abscess. The abscess was drained, complex loculations were broken down, and irrigated with normal saline. Sterile dressing applied. Diagnosis Primary Impression: Abscess Referrals: Primary Care Physician Additional Instructions: Antibiotic as directed. Cleansed the area daily with soap and water. Apply clean dry dressing. Follow-up the primary doctor. Scripts Sulfamethoxazole-Trimethoprim (Bactrim DS) 800-160 Mg Tab 1 TAB PO BID for Infection, #20 TAB 0 Refills Prov: Davina Schmid 07/18/17 Disposition: 01 DISCHARGE HOME Condition: Stable Davina Schmid Jul 18, 2017 15:00
== END 2017-07-18 15:21 | disposition home or self-care (01) ==
LOC: PHEFT 14:08
DX: L02.415 Cutaneous abscess of right lower limb (principal); F17.210 Nicotine dependence, cigarettes, uncomplicated
CPT/HCPCS: 10060

== ENCOUNTER 2017-10-04 22:29 | Emergency (ER) | payer SELFPAY ==
[~2017-10-04 22:29] MED LIST changes: +BACT800T5 PO; -PROM2SUP RECTAL; +domperidone
[2017-10-04] MEDS ORDERED: SODIUM CHLOR 0.9% 1000 ML INJ 1,000 ML IV SCH (23:26)
--- NOTE | 2017-10-04 23:26 | PD ---
HPI Chief Complaint: Abdominal Pain Time Seen by Provider: 23:24 Travel History International Travel<30 days: No Contact w/Intl Traveler<30days: No Traveled to known affect area: No History of Present Illness HPI Patient has had onset of nausea and vomiting ongoing since 6 a.m. today, she is used to this bouts of vomiting because she has been diagnosed with gastroparesis. Patient states that this feels very similar to her previous episodes. Patient denies any associated factors such as fever/rash/headache/ chest pain/flank pain/cough/runny nose/sore throat or diarrhea. No known drug allergy Past medical history significant for hypertension hemorrhoids ulcer gastroparesis PFSH Past Medical History Blood Disorders: No Cancer: No Cardiovascular Problems: Yes (heart murmur -0- unknown) Diminished Hearing: No Endocrine: No Gastrointestinal Disorders: Yes (gastroparesis) Genitourinary: No Hypertension: Yes Immune Disorder: No Implanted Vascular Access Dvce: No Musculoskeletal: No Neurologic: No Psychiatric: No Reproductive: No Respiratory: No Immunizations Current: No Ulcer: Yes PNEUMOCCOCAL Vaccine (Year): 2 Menopausal: No : 1 Para: 1 Past Surgical History Abdominal Surgery: Yes (HEMMORRHOIDS) Other Surgery: Yes (hemmorhoidectomy) Social History Alcohol Use: No Tobacco Use: Yes (1 PACK/DAY x 20 years) Substance Use: No Allergies-Medications (Allergen,Severity, Reaction): Coded Allergies: No Known Allergies (Verified Adverse Reaction, Unknown, 07/18/17) Reported Meds & Prescriptions Reported Meds & Active Scripts Active Reported [Dompardone] 10 Mg PO TID Lisinopril 40 Mg Tab 40 Mg PO DAILY Review of Systems General / Constitutional: No: Fever Eyes: No: Visual changes HENT: No: Headaches Cardiovascular: No: Chest Pain or Discomfort Respiratory: No: Shortness of Breath Gastrointestinal: Positive: Nausea, Vomiting Genitourinary: No: Dysuria Musculoskeletal: No: Pain Skin: No Rash Neurologic: No: Weakness Psychiatric: No: Depression Endocrine: No: Polydipsia Hematologic/Lymphatic: No: Easy Bruising Physical Exam Narrative GENERAL: SKIN: Warm and dry. HEAD: Atraumatic. Normocephalic. EYES: Pupils equal and round. No scleral icterus. No injection or drainage. ENT: No nasal bleeding or discharge. Mucous membranes pink and moist. NECK: Trachea midline. No JVD. CARDIOVASCULAR: Regular rate and rhythm. RESPIRATORY: No accessory muscle use. Clear to auscultation. Breath sounds equal bilaterally. GASTROINTESTINAL: Abdomen soft, non-tender, nondistended. MUSCULOSKELETAL: Extremities without clubbing, cyanosis, or edema. No obvious deformities. NEUROLOGICAL: Awake and alert. No obvious cranial nerve deficits. Motor grossly within normal limits. Five out of 5 muscle strength in the arms and legs. Normal speech. PSYCHIATRIC: Appropriate mood and affect; insight and judgment normal. Data Data Last Documented VS Vital Signs Date Time Temp Pulse Resp B/P (MAP) Pulse Ox O2 Delivery O2 Flow Rate FiO2 10/05/17 00:35 16 10/04/17 23:30 98 Room Air Orders Orders Complete Blood Count With Diff (10/04/17:) Comprehensive Metabolic Panel (10/04/17:) Lipase (10/04/17:) Urinalysis - C+S If Indicated (10/04/17:) Iv Access Insert/Monitor (10/04/17:) Ecg Monitoring (10/04/17:) Oximetry (10/04/17:) NPO (10/04/17:) Morphine Inj (Morphine Inj) (10/04/17 23:30) Sodium Chlor 0.9% 1000 Ml Inj (Ns 1000 M (10/04/17 23:26) Sodium Chloride 0.9% Flush (Ns Flush) (10/04/17:30) Metoclopramide Inj (Reglan Inj) (10/04/17 23:30) Morphine Inj (Morphine Inj) (10/05/17 00:15) Prochlorperazine Inj (Compazine Inj) (10/05/17 00:15) Diphenhydramine Inj (Benadryl Inj) (10/05/17 00:15) Ct Abd/Pel W/O Iv Contrast (10/05/17:26) Hydralazine Inj (Apresoline Inj) (10/05/17 01:30) Labs Laboratory Tests Test 10/04/17 23:35 White Blood Count 7.8 TH/MM3 Red Blood Count 4.86 MIL/MM3 Hemoglobin 15.0 GM/DL Hematocrit 46.0 % Mean Corpuscular Volume 94.5 FL Mean Corpuscular Hemoglobin 30.9 PG Mean Corpuscular Hemoglobin Concent 32.7 % Red Cell Distribution Width 11.8 % Platelet Count 393 TH/MM3 Mean Platelet Volume 8.3 FL Neutrophils (%) (Auto) 54.6 % Lymphocytes (%) (Auto) 34.1 % Monocytes (%) (Auto) 9.2 % Eosinophils (%) (Auto) 0.6 % Basophils (%) (Auto) 1.5 % Neutrophils # (Auto) 4.4 TH/MM3 Lymphocytes # (Auto) 2.6 TH/MM3 Monocytes # (Auto) 0.7 TH/MM3 Eosinophils # (Auto) 0.0 TH/MM3 Basophils # (Auto) 0.1 TH/MM3 CBC Comment DIFF FINAL Differential Comment Blood Urea Nitrogen 10 MG/DL Creatinine 0.85 MG/DL Random Glucose 128 MG/DL Total Protein 7.9 GM/DL Albumin 4.2 GM/DL Calcium Level 9.6 MG/DL Alkaline Phosphatase 119 U/L Aspartate Amino Transf (AST/SGOT) 14 U/L Alanine Aminotransferase (ALT/SGPT) 17 U/L Total Bilirubin 0.4 MG/DL Sodium Level 138 MEQ/L Potassium Level 3.0 MEQ/L Chloride Level 100 MEQ/L Carbon Dioxide Level 29.3 MEQ/L Anion Gap 9 MEQ/L Estimat Glomerular Filtration Rate 71 ML/MIN Lipase 247 U/L MDM Medical Decision Making Medical Screen Exam Complete: Yes Emergency Medical Condition: Yes Medical Record Reviewed: Yes Differential Diagnosis Gastroparesis versus bronchitis versus hepatitis versus gastroenteritis versus colitis versus diverticulitis Narrative Course CBC shows no leukocytosis, no anemia, normal platelet count, no left shift Electrolytes are all within normal limits with exception of hypokalemia 3.0. Normal kidney liver and pancreatic functions. CT abdomen and pelvis showed heart rate radiology report no acute abnormality seen, the stomach does not appear significantly distended. Patient was tolerating p.o. well, did not have any further episodes of vomiting while in the department. Was resting comfortably after medicated and was prepared for discharge once all the findings were discussed with her as well as her significant other. Diagnosis Primary Impression: Gastroparesis Additional Impression: Hypertension Qualified Codes: I10 - Essential (primary) hypertension Patient Instructions: Gastroparesis (ED), General Instructions Scripts Tramadol (Ultram) 50 Mg Tab 50 MG PO Q8H Y for PAIN for 3 Days, #9 TAB 0 Refills Prov: Raúl Samuel MD 10/05/17 Metoclopramide (Reglan) 10 Mg Tab 10 MG PO TIDAC for 5 Days, #15 TAB 0 Refills Prov: Raúl Samuel MD 10/05/17 Disposition: 01 DISCHARGE HOME Condition: Stable Raúl Samuel MD October 04, 2017 23:26
[2017-10-04 23:30] VITALS: BP 248/127; PULSE 86; RESP 18; RESP 20; O2SAT 98
[2017-10-04] MEDS ORDERED: MORPHINE SULFATE 4 MG/ML INJ IV PUSH ONE (23:30)
[2017-10-04] MEDS ORDERED: METOCLOPRAMIDE HCL 10 MG/2 ML VIAL IV PUSH ONE (23:30)
[2017-10-04 23:31] VITALS: BP 276/145; PULSE 87; RESP 18; O2SAT 98
[2017-10-04 23:40] VITALS: BP_SYST 143; BP_SYST 243; BP_DIAS 125; PULSE 87; RESP 18; O2SAT 98
[2017-10-04] MEDS: SODIUM CHLORIDE 0.9% FLUSH 10 ML FLUSH IV FLUSH PRN (23:50)
[2017-10-04 23:53] LABS: AUTOMATED NEUTROPHIL # 4.4 TH/MM3 (1.8-7.7); BASOPHIL # 0.1 TH/MM3 (0-0.2); BASOPHIL % 1.5 % (0.0-2.0); EOSINOPHIL % 0.6 % (0.0-4.0); LYMPH % 34.1 % (9.0-44.0); LYMPHOCYTE # 2.6 TH/MM3 (1.0-4.8); MEAN CELL VOLUME 94.5 FL (80.0-100.0); MEAN CORPUSCULAR HEMOGLOBIN 30.9 PG (27.0-34.0); MEAN CORPUSCULAR HGB CONC 32.7 % (32.0-36.0); MEAN PLATELET VOLUME 8.3 FL (7.0-11.0); MONO % 9.2 % (0.0-8.0); MONOCYTE # 0.7 TH/MM3 (0-0.9); NEUT % 54.6 % (16.0-70.0); PLATELET COUNT 393 TH/MM3 (150-450); RED BLOOD COUNT 4.86 MIL/MM3 (4.00-5.30); RED CELL DISTRIBUTION WIDTH 11.8 % (11.6-17.2); WHITE BLOOD COUNT 7.8 TH/MM3 (4.0-11.0)
[2017-10-04] MEDS ORDERED: [UNRECOGNIZED DRUG - OTHER] PO (23:54)
[2017-10-05] VITALS (9 sets, daily range): BP systolic 199–266; BP diastolic 81–137; PULSE 72–104; RESP 14–18; O2SAT 96–99
[2017-10-05 00:02] LABS: CHLORIDE 100 MEQ/L (98-107); SODIUM (NA) 138 MEQ/L (136-145)
[2017-10-05 00:06] LABS: ALBUMIN 4.2 GM/DL (3.4-5.0); BICARBONATE 29.3 MEQ/L (21.0-32.0); BLOOD UREA NITROGEN 10 MG/DL (7-18); CALCIUM 9.6 MG/DL (8.5-10.1); GLUCOSE,RANDOM 128 MG/DL (74-106)
[2017-10-05 00:09] LABS: ALT (GPT) 17 U/L (10-53); AST (GOT) 14 U/L (15-37); CREATININE 0.85 MG/DL (0.50-1.00); GLOMERULAR FILTRATION RATE 71 ML/MIN (>89)
[2017-10-05 00:11] LABS: TOTAL BILIRUBIN ADULT 0.4 MG/DL (0.2-1.0); TOTAL PROTEIN 7.9 GM/DL (6.4-8.2)
[2017-10-05 00:12] LABS: ALKALINE PHOSPHATASE 119 U/L (45-117)
[2017-10-05] MEDS ORDERED: PROCHLORPERAZINE INJ 10 MG/2 ML VIAL IV PUSH ONE (00:15)
[2017-10-05] MEDS ORDERED: MORPHINE SULFATE 4 MG/ML INJ IV PUSH ONE (00:15)
[2017-10-05] MEDS ORDERED: diphenhydrAMINE HCL 50 MG/ML VIAL IV PUSH ONE (00:15)
[2017-10-05] MEDS: SODIUM CHLORIDE 0.9% FLUSH 10 ML FLUSH IV FLUSH PRN (00:18)
--- NOTE | 2017-10-05 01:17 | RADRPT ---
EXAM DATE: 10/05/2017 1:01 AM EDT AGE/SEX: 52 years / Female INDICATIONS: Abdominal pain, history of gastroparesis CLINICAL DATA: This is the patient's initial encounter. Patient reports that signs and symptoms have been present for 1 day and indicates a pain score of 5/10. MEDICAL/SURGICAL HISTORY: Hypertension. Hemorrhoidectomy. RADIATION DOSE: 5.71 CTDI (mGy) COMPARISON: No prior [facility] exams available for comparison. TECHNIQUE: Multiple contiguous axial images were obtained through the abdomen. Images were obtained using multiple row detector helical technique. Using dose reduction techniques, radiation dose was ke pt as low as reasonably achievable to obtain optimal diagnostic quality images. FINDINGS: Lower Lungs: The visualized lower lungs are clear. Liver: The liver has a homogeneous density without space-occupying lesion. There is no dilation of th e biliary tree. Spleen: Homogeneous density without enlargement. Pancreas: Unremarkable without mass or calcification. Kidneys: Normal in size and shape. No evidence of mass or hydronephrosis. Adrenal Glands: The adrenal glands are diffusely prominent which could relate be related to hypertr ophy. Aorta: Atherosclerotic calcifications are seen throughout. No aneurysm is seen. Bowel/Mesentery: The bowel loops are grossly unremarkable. The cecum and sigmoid colon have a normal configuration. The stomach is not significantly dilated. Abdominal Wall: Intact. Retroperitoneum: No evidence of adenopathy in the retrocrural, para-aortic, or deep pelvic regions. Bladder: Contours are smooth. Reproductive Organs: No abnormal masses or calcifications seen. Inguinal: The inguinal region is unremarkable without evidence of adenopathy. Bony Structures: Degenerative change of the lower lumbar spine. CONCLUSION: 1. No acute abnormality is seen. 2. The stomach does not appear significantly distended. Electronically signed by: Bert Campos MD 10/05/2017 1:16 AM EDT
[2017-10-05] MEDS ORDERED: hydrALAZINE HCL 20 MG/ML VIAL IV PUSH ONE ×2 (01:30→02:15)
[2017-10-05] MEDS ORDERED: REGL10TA5 PO (01:41)
[2017-10-05] MEDS ORDERED: TRAM50 PO (01:41)
[2017-10-05] MEDS ORDERED: DICYCLOMINE HCL 20 MG/2 ML VIAL IM ONE (02:15)
[2017-10-05] MEDS ORDERED: METOCLOPRAMIDE HCL 10 MG/2 ML VIAL IV PUSH ONE (02:15)
[2017-10-05] MEDS ORDERED: ZOFR4TAB3 SL (03:05)
== END 2017-10-05 03:29 | disposition home or self-care (01) ==
LOC: PHED 22:29
DX: K31.84 Gastroparesis (principal); I10 Essential (primary) hypertension; Z72.0 Tobacco use
CPT/HCPCS: 74176; 80053; 83690; 85025; 96361; 96372; 96374; 96375; 99284; J0360; J0500; J0780; J1200; J2270; J2765; J7030

== ENCOUNTER 2017-11-04 00:58 | Emergency (ER) | payer SELFPAY ==
[~2017-11-04] VITALS: Ht 162.6 cm; Wt 52.0 kg
[~2017-11-04 00:58] MED LIST changes: -BACT800T5 PO; +REGL10TA5 PO; +TRAM50 PO; +ZOFR4TAB3 SL; +[UNRECOGNIZED DRUG - OTHER] PO; -domperidone
[2017-11-04 01:02] VITALS: BP 227/105; PULSE 97; RESP 20; TEMP 98.5; O2SAT 98
[2017-11-04] MEDS ORDERED: pain medicine (01:14)
[2017-11-04] MEDS ORDERED: PROC10TA PO (01:19)
[2017-11-04] MEDS ORDERED: diphenhydrAMINE HCL 50 MG/ML VIAL IV PUSH ONE (01:30)
[2017-11-04] MEDS ORDERED: PROCHLORPERAZINE INJ 10 MG/2 ML VIAL IV PUSH ONE (01:30)
[2017-11-04] MEDS ORDERED: SODIUM CHLOR 0.9% 1000 ML INJ 1,000 ML IV ONE (01:30)
[2017-11-04] MEDS ORDERED: KETOROLAC TROMETHAMINE 30 MG/ML (IVP) VIAL IV PUSH ONE (02:15)
--- NOTE | 2017-11-04 02:18 | PD ---
HPI . Vomiting Chief Complaint: GI Complaint Time Seen by Provider: 01:07 Travel History International Travel<30 days: No Contact w/Intl Traveler<30days: No Traveled to known affect area: No History of Present Illness HPI This patient presents with a chief complaint of vomiting. Onset was last night. She states that she has vomited about 10 times. She denies diarrhea. She denies fever. She denies urinary tract symptoms. She states that she is urinating normally. She reports a history of gastroparesis and feels that this is the cause of her symptoms. PFSH Past Medical History Blood Disorders: No Cancer: No Cardiovascular Problems: Yes (heart murmur -0- unknown) Diminished Hearing: No Endocrine: No Gastrointestinal Disorders: Yes (gastroparesis) Genitourinary: No Hypertension: Yes Immune Disorder: No Implanted Vascular Access Dvce: No Musculoskeletal: No Neurologic: No Psychiatric: No Reproductive: No Respiratory: No Immunizations Current: No Ulcer: Yes Tetanus Vaccination: Unknown Influenza Vaccination: No PNEUMOCCOCAL Vaccine (Year): 2 ?: Not Menopausal: Yes : 1 Para: 1 Past Surgical History Abdominal Surgery: Yes (HEMMORRHOIDS) Other Surgery: Yes (hemmorhoidectomy) Social History Alcohol Use: No Tobacco Use: Yes (1 PACK/DAY x 20 years) Substance Use: No Allergies-Medications (Allergen,Severity, Reaction): Coded Allergies: No Known Allergies (Verified Adverse Reaction, Unknown, 07/18/17) Reported Meds & Prescriptions Reported Meds & Active Scripts Active Reported Prochlorperazine Maleate 10 Mg Tab 10 Mg PO Q6H PRN [Dompardone] 10 Mg PO TID Lisinopril 40 Mg Tab 40 Mg PO DAILY Review of Systems Except as stated in HPI: all other systems reviewed are Neg General / Constitutional: No: Fever, Chills Gastrointestinal: Positive: Nausea, Vomiting, Abdominal Pain, No: Diarrhea Genitourinary: No: Decreased Urinary Output Physical Exam Narrative GENERAL: Thin woman who is awake and alert. SKIN: warm/dry. HEAD: Normocephalic. Atraumatic. EYES: Pupils equal and round. Extraocular movements are intact. ENT: Mucous membranes pink and moist. NECK: Supple. Full range of motion without pain.. CARDIOVASCULAR: Regular rate and rhythm. Heart sounds are normal. RESPIRATORY: No accessory muscle use. Clear to auscultation. Breath sounds equal bilaterally. GASTROINTESTINAL: Abdomen soft. Diffusely tender.. Bowel sounds present. Nondistended. MUSCULOSKELETAL: No obvious deformities. Normal muscle tone. NEUROLOGICAL: Awake and alert. No obvious cranial nerve deficits. Motor grossly within normal limits. Normal speech. PSYCHIATRIC: Appropriate mood and affect; insight and judgment normal. Data Data Last Documented VS Vital Signs Date Time Temp Pulse Resp B/P (MAP) Pulse Ox O2 Delivery O2 Flow Rate FiO2 11/04/17 01:02 98.5 97 20 227/105 (145) 98 Orders Orders Prochlorperazine Inj (Compazine Inj) (11/04/17 01:30) Diphenhydramine Inj (Benadryl Inj) (11/04/17 01:30) Sodium Chlor 0.9% 1000 Ml Inj (Ns 1000 M (11/04/17 01:30) Ketorolac Inj (Toradol Inj) (11/04/17 02:15) MDM Medical Decision Making Medical Screen Exam Complete: Yes Emergency Medical Condition: Yes Differential Diagnosis Differential diagnosis of abdominal pain includes but is not limited to gastritis, pancreatitis, hepatitis, gastroenteritis, constipation, urinary retention, peptic ulcer disease, diverticulitis or appendicitis Narrative Course This patient presents with abdominal pain and vomiting. She reports a history of gastroparesis. I ordered IV fluids and IV Compazine and Benadryl. The patient and her significant other immediately began demanding pain medication. The patient's significant other has actually escalated and is yelling down the hallway that she is "about to keel over" and that she needs something for pain. I ordered IV Toradol. I asked our private security guard to escorted visitor outside as he is being very disruptive. The patient then stated that, if he was going to go, she was going to go too. Diagnosis Primary Impression: Gastroparesis Disposition: AGAINST MEDICAL ADVICE Condition: Stable Theresa Ackerman MD Nov 04, 2017 02:18
== END 2017-11-04 02:35 | disposition left against medical advice (07) ==
LOC: PHED 00:58
DX: K31.84 Gastroparesis (principal); I10 Essential (primary) hypertension; F17.210 Nicotine dependence, cigarettes, uncomplicated
CPT/HCPCS: 96361; 96374; 99284; J0780; J1200; J7030